=== PATIENT | female | born 1950 | race Two or more races ===

== ENCOUNTER 2024-04-17 07:18 | Day surgery (SDC) | payer OTHER ==
[2024-04-16 17:20] VITALS: BMI 29.7
[2024-04-17] MEDS: IOHEXOL 180 MG/1 ML ML IJ ONE
[2024-04-17] MEDS: DEXAMETHASONE SOD PHOSPHATE 10 MG/1 ML VIAL IM ONE
[2024-04-17] MEDS: LIDOCAINE HCL 1% PRESERVATIVE FREE - 30ML VIAL IJ ONE (13:26)
[2024-04-17 13:55] VITALS: RESP 18; TEMP 97.3
[2024-04-17 14:32] VITALS: BP 146/72; PULSE 68
[2024-04-17] MEDS ORDERED: ACETAMINOPHEN 500 MG TABLET (FP) PO PRN (16:57)
== END 2024-04-17 14:30 | disposition home or self-care (01) ==
LOC: JASU-SURG 07:18
PROVIDERS: ATTEND Pain Medicine Pain Medicine
PROC: 3E0R3BZ Introduction of Anesthetic Agent into Spinal Canal, Percutaneous Approach (ICD-10-PCS; 2024-04-17)
PROC: 3E0R33Z Introduction of Anti-inflammatory into Spinal Canal, Percutaneous Approach (ICD-10-PCS; principal; 2024-04-17 13:24)
DX: M54.16 Radiculopathy, lumbar region (principal); M48.061 Spinal stenosis, lumbar region without neurogenic claudication
CPT/HCPCS: 76000-TC-FY; J1100

== ENCOUNTER 2024-07-11 06:31 | Day surgery (SDC) | payer OTHER ==
[2024-07-09 13:29] VITALS: BMI 29.0
[2024-07-11] MEDS: LIDOCAINE HCL 1% PRESERVATIVE FREE - 30ML VIAL IJ ONE ×2 (11:22)
[2024-07-11] MEDS: IOHEXOL 180 MG/1 ML ML IJ ONE ×2 (11:23)
[2024-07-11] MEDS: BUPIVACAINE HCL/PF 0.5% (5MG/ML) 10 ML VIAL IJ ONE ×2 (11:24)
[2024-07-11] MEDS: TRIAMCINOLONE ACETONIDE 40 MG/ML 10 ML VIAL IJ ONE ×2 (11:24)
[2024-07-11 11:46] VITALS: PULSE 64; TEMP 98.4
[2024-07-11 11:59] VITALS: BP 140/68; RESP 18
== END 2024-07-11 12:10 | disposition home or self-care (01) ==
LOC: JASU-SURG 06:31
PROVIDERS: ATTEND Pain Medicine Pain Medicine
PROC: 3E0U3BZ Introduction of Anesthetic Agent into Joints, Percutaneous Approach (ICD-10-PCS; 2024-07-11)
PROC: 3E0U33Z Introduction of Anti-inflammatory into Joints, Percutaneous Approach (ICD-10-PCS; principal; 2024-07-11 11:00)
DX: M53.3 Sacrococcygeal disorders, not elsewhere classified (principal)
CPT/HCPCS: 76000-TC-FY

== ENCOUNTER 2024-09-28 16:43 | Inpatient (IN) | payer OTHER ==
[2024-09-28 16:58] VITALS: BMI 29.2
[2024-09-28] MEDS ORDERED: ACETAMINOPHEN INJECTION 100 ML ONE (18:00)
[2024-09-28 18:01] LABS: ABSOLUTE IMMATURE GRANULOCYTES 0.03 x10^3/uL (0.0-0.031); BASOPHILS # 0.06 x10^3/uL (0.01-0.08); EOSINOPHIL % 5.6 % (0.7-5.8); EOSINOPHILS # 0.41 x10^3/uL (0.04-0.36); MCHC 32.5 g/dl (32.2-35.5); MEAN CELL VOLUME 94.7 fl (79.4-94.8); MEAN PLT VOLUME 9.0 fl (9.4-12.3); MONOCYTE # 0.75 x10^3/uL (0.24-0.86); MONOCYTE % 10.3 % (4.7-12.5); RDW 12.2 % (12.4-16.6)
[2024-09-28] MEDS: ACETAMINOPHEN 1000 MG/100 ML BAG IVPB ONE (18:04)
[2024-09-28 18:09] LABS: INR 1.09 (0.83-1.09); PROTHROMBIN TIME (PATIENT) 11.9 SEC (9.7-13.0)
[2024-09-28 18:12] LABS: ACTIVATED PTT 28.5 SECONDS (25.2-36.5)
[2024-09-28 18:52] LABS: CO2 30.0 mmol/L (21-32); GLUCOSE,RANDOM 118.0 mg/dL (74-106)
[2024-09-28 18:55] LABS: CREATININE 0.9 mg/dL (0.55-1.3); SGOT/AST 39.0 U/L (15-37); SGPT/ALT 78.0 U/L (13-61)
[2024-09-28 18:56] LABS: TOT PROT 7.2 g/dl (6.4-8.2)
[2024-09-28 18:57] LABS: ALK PHOS 96.0 U/L (45-117)
[2024-09-28] MEDS ORDERED: MAGNESIUM SULFATE IN WATER 2 GM/50 ML IVPB IVPB ONE (19:21)
[2024-09-28] MEDS: MAGNESIUM SULF 50% (8.12 MEQ/2 ML-1 GM VIAL) IVPB ONE (19:43)
[2024-09-28] MEDS ORDERED: KETOROLAC TROMETHAMINE 15 MG/ML VIAL ONE (19:44)
[2024-09-28] MEDS: KETOROLAC TROMETHAMINE 15 MG/ML VIAL IVPUSH ONE (19:45)
[2024-09-28] MEDS ORDERED: LIDOCAINE 4% PATCH TP PRN (21:36)
[2024-09-28] MEDS ORDERED: CELECOXIB 100 MG CAPSULE PO PRN (21:36)
[2024-09-28] MEDS ORDERED: ATORVASTATIN CA 40 MG TABLET (FP) PO SCH (21:45)
[2024-09-28] MEDS ORDERED: amLODIPine BESYLATE 2.5 MG TABLET (FP) PO SCH (22:00)
[2024-09-28] MEDS: ATORVASTATIN CA 20 MG TABLET (FP) PO SCH (22:30)
[2024-09-28] MEDS: amLODIPine BESYLATE 5 MG TABLET (FP) PO SCH (22:31)
[2024-09-28] MEDS: CARVEDILOL 12.5 MG TABLET (FP) PO SCH (22:31)
[2024-09-29] MEDS: PREGABALIN 75 MG CAPSULE PO SCH ×2 (00:17→06:50)
[2024-09-29] MEDS: LIDOCAINE PATCH REMOVAL MC SCH (00:29)
[2024-09-29] MEDS: DOCUSATE SODIUM 100 MG CAPSULE (FP) PO ONE (01:43)
[2024-09-29] MEDS: PREGABALIN 75 MG CAPSULE PO ONE (01:43)
[2024-09-29 07:42] LABS: ABSOLUTE IMMATURE GRANULOCYTES 0.03 x10^3/uL (0.0-0.031); BASOPHILS # 0.04 x10^3/uL (0.01-0.08); EOSINOPHIL % 5.9 % (0.7-5.8); EOSINOPHILS # 0.48 x10^3/uL (0.04-0.36); MCHC 32.4 g/dl (32.2-35.5); MEAN CELL VOLUME 94.6 fl (79.4-94.8); MEAN PLT VOLUME 9.6 fl (9.4-12.3); MONOCYTE # 0.82 x10^3/uL (0.24-0.86); MONOCYTE % 10.0 % (4.7-12.5); RDW 12.2 % (12.4-16.6)
[2024-09-29 08:37] LABS: CO2 30.0 mmol/L (21-32); GLUCOSE,RANDOM 97.0 mg/dL (74-106)
[2024-09-29 08:40] LABS: CREATININE 0.8 mg/dL (0.55-1.3); SGOT/AST 34.0 U/L (15-37); SGPT/ALT 64.0 U/L (13-61)
[2024-09-29 08:42] LABS: TOT PROT 5.7 g/dl (6.4-8.2)
[2024-09-29 08:43] LABS: ALK PHOS 88.0 U/L (45-117)
[2024-09-29] MEDS: SODIUM CHLORIDE 1 GM TABLET PO SCH (09:44)
[2024-09-29] MEDS: PANTOPRAZOLE 20 MG TABLET PO SCH (09:44)
[2024-09-29] MEDS: SPIRONOLACTONE 25 MG TABLET PO SCH (09:44)
[2024-09-29] MEDS: DOCUSATE SODIUM 100 MG CAPSULE (FP) PO SCH (09:44)
[2024-09-29] MEDS ORDERED: PATIENT'S OWN MEDICATION (NON-FORMULARY) (Omeprazole 20 MG Capsule.Dr) PO SCH (10:00)
[2024-09-29] MEDS ORDERED: ENOXAPARIN NA (PORCINE) 40 MG/0.4 ML DISP.SYRIN SQ SCH (10:00)
[2024-09-29] MEDS: CELECOXIB 100 MG CAPSULE PO PRN (18:59)
[2024-09-29 19:24] LABS: HCV DIAGNOSTIC IN-HOUSE W/RFLX NON-REACTIVE (NONREACTIVE)
[2024-09-29 19:26] LABS: HIV INTERPRETATION NEGATIVE (NEGATIVE)
[2024-09-29] MEDS: PATIENT'S OWN MEDICATION (NON-FORMULARY) (Tizanidine Hcl [Tizanidine Hcl] 2 MG Tablet) PO SCH (21:19)
[2024-09-29] MEDS: LACTATED RINGERS SOLUTION 1,000 ML/1,000 ML INFUS.BAG IV SCH (23:16)
[2024-09-30] MEDS ORDERED: ACETAMINOPHEN INJECTION 100 ML ONE (07:23)
[2024-09-30] MEDS ORDERED: PROPOFOL 80 ML ONE (07:33)
[2024-09-30] MEDS ORDERED: SUCCINYLCHOLINE CHLORIDE 200 MG/10 ML SYRINGE ONE (07:34)
[2024-09-30] MEDS ORDERED: MIDAZOLAM HCL 2 MG/2 ML SINGLE DOSE VIAL ONE (07:34)
[2024-09-30] MEDS ORDERED: GLYCOPYRROLATE 0.2 MG/1 ML VIAL ONE (07:35)
[2024-09-30] MEDS ORDERED: LIDOCAINE HCL/PF 2% SDV 5ML VIAL ONE (07:35)
[2024-09-30] MEDS ORDERED: DEXAMETHASONE SOD PHOSPHATE 4 MG/1 ML VIAL ONE (07:35)
[2024-09-30] MEDS ORDERED: ONDANSETRON 4 MG/2 ML VIAL ONE (07:35)
[2024-09-30] MEDS ORDERED: SODIUM CHLORIDE 0.9% P/F 10 ML VIAL IJ ONE (07:41)
[2024-09-30] MEDS ORDERED: MAGNESIUM SULF 50% (8.12 MEQ/2 ML-1 GM VIAL) ONE (07:41)
[2024-09-30] MEDS ORDERED: GENTAMICIN SO4 80 MG/2 ML VIAL ONE (07:41)
[2024-09-30] MEDS ORDERED: VANCOMYCIN 1,000 MG VIAL (RESTRICTED TO ID ONLY) ONE (07:41)
[2024-09-30] MEDS ORDERED: BUPIVACAINE HCL/PF 0.25% (2.5MG/ML) 10 ML VIAL ONE (07:42)
[2024-09-30] MEDS ORDERED: BUPIVACAINE LIPOSOME/PF (EXPAREL) 266 MG/20 ML VIAL ONE (07:42)
[2024-09-30] MEDS ORDERED: THROMBIN (BOVINE) 20,000 UNIT VIAL TP ONE (07:42)
[2024-09-30 08:32] LABS: ABSOLUTE IMMATURE GRANULOCYTES 0.03 x10^3/uL (0.0-0.031); BASOPHILS # 0.04 x10^3/uL (0.01-0.08); EOSINOPHIL % 8.3 % (0.7-5.8); EOSINOPHILS # 0.50 x10^3/uL (0.04-0.36); MCHC 32.3 g/dl (32.2-35.5); MEAN CELL VOLUME 95.4 fl (79.4-94.8); MEAN PLT VOLUME 9.6 fl (9.4-12.3); MONOCYTE # 0.77 x10^3/uL (0.24-0.86); MONOCYTE % 12.7 % (4.7-12.5); RDW 12.0 % (12.4-16.6)
[2024-09-30 08:37] LABS: INR 1.08 (0.83-1.09); PROTHROMBIN TIME (PATIENT) 11.8 SEC (9.7-13.0)
[2024-09-30] MEDS ORDERED: TRANEXAMIC ACID 1000 MG/10 ML VIAL ONE (09:03)
[2024-09-30] MEDS ORDERED: PROPOFOL 40 ML ONE ×2 (09:13→10:22)
[2024-09-30] MEDS: THROMBIN (BOVINE) 5,000 UNIT VIAL TP ONE (09:30)
[2024-09-30] MEDS: THROMBIN (BOVINE) 20,000 UNIT VIAL TP ONE (09:35)
[2024-09-30] MEDS ORDERED: SUGAMMADEX SODIUM 200 MG/2 ML VIAL ONE (09:40)
[2024-09-30] MEDS: GENTAMICIN 80MG PREMIX BAG IVPB ONE (09:45)
[2024-09-30] MEDS: VANCOMYCIN 1,000 MG VIAL (RESTRICTED TO ID ONLY) IVPB ONE (09:45)
[2024-09-30 09:47] LABS: SGPT/ALT 65.0 U/L (13-61)
[2024-09-30 09:48] LABS: ALK PHOS 83.0 U/L (45-117); SGOT/AST 32.0 U/L (15-37); TOT PROT 5.8 g/dl (6.4-8.2)
[2024-09-30] MEDS: BUPIVACAINE HCL/PF 0.25% (2.5MG/ML) 10 ML VIAL IJ ONE (09:50)
[2024-09-30] MEDS: BUPIVACAINE LIPOSOME/PF (EXPAREL) 266 MG/20 ML VIAL NR ONE (09:50)
[2024-09-30 10:01] LABS: CO2 29.0 mmol/L (21-32)
[2024-09-30 10:02] LABS: CREATININE 0.7 mg/dL (0.55-1.3); GLUCOSE,RANDOM 98.0 mg/dL (74-106)
[2024-09-30] MEDS ORDERED: ONDANSETRON 4 MG/2 ML VIAL IVPUSH PRN ×2 (11:46→12:24)
[2024-09-30] MEDS ORDERED: diphenhydrAMINE HCL 25 MG CAPSULE (FP) PO PRN ×2 (11:46→12:24)
[2024-09-30] MEDS: MULTIVITAMINS (DAILY MVI) TABLET (FP) PO SCH (11:53)
[2024-09-30] MEDS ORDERED: DOCUSATE SODIUM 100 MG CAPSULE (FP) PO SCH (14:00)
[2024-09-30] MEDS ORDERED: HEPARIN NA (PORCINE) 5,000 UNITS/ML 1ML VIAL SQ SCH (14:00)
[2024-09-30] MEDS: MAGNESIUM SULFATE IN WATER 2 GM/50 ML IVPB IVPB ONE ×2 (14:00→15:17)
[2024-09-30] MEDS: LACTATED RINGERS SOLUTION 1,000 ML/1,000 ML INFUS.BAG IV SCH ×2 (14:33→15:18)
[2024-09-30] MEDS: LACTATED RINGERS SOLUTION 1,000 ML IV SCH (15:17)
[2024-09-30] MEDS: PATIENT'S OWN MEDICATION (NON-FORMULARY) (Tizanidine Hcl [Tizanidine Hcl] 2 MG) PO SCH (15:25)
[2024-09-30] MEDS: PREGABALIN 75 MG CAPSULE PO SCH (15:25)
[2024-09-30] MEDS: amLODIPine BESYLATE 5 MG TABLET (FP) PO ONE (15:25)
[2024-09-30] MEDS: DOCUSATE SODIUM 100 MG CAPSULE (FP) PO SCH (15:25)
[2024-09-30 15:26] LABS: IRON SERUM 70 ug/dL (50-175)
[2024-09-30] MEDS: CEFAZOLIN 1 GM in DEXTROSE 5%-WATER - 50 ML IVPB SCH (17:12)
[2024-09-30] MEDS ORDERED: ACETAMINOPHEN 1000 MG/100 ML BAG IVPB PRN (17:35)
[2024-09-30] MEDS ORDERED: CEFAZOLIN 1 GM in DEXTROSE 5%-WATER - 50 ML IVPB SCH (18:00)
[2024-09-30] MEDS: CARVEDILOL 12.5 MG TABLET (FP) PO SCH (21:27)
[2024-09-30] MEDS: amLODIPine BESYLATE 5 MG TABLET (FP) PO SCH (21:28)
[2024-09-30] MEDS: ATORVASTATIN CA 20 MG TABLET (FP) PO SCH (21:28)
[2024-09-30] MEDS ORDERED: amLODIPine BESYLATE 5 MG TABLET (FP) PO SCH (22:00)
[2024-10-01 08:45] LABS: ABSOLUTE IMMATURE GRANULOCYTES 0.10 x10^3/uL (0.0-0.031); BASOPHILS # 0.02 x10^3/uL (0.01-0.08); EOSINOPHIL % 0.0 % (0.7-5.8); EOSINOPHILS # 0.00 x10^3/uL (0.04-0.36); MCHC 32.5 g/dl (32.2-35.5); MEAN CELL VOLUME 94.1 fl (79.4-94.8); MEAN PLT VOLUME 10.0 fl (9.4-12.3); MONOCYTE # 1.21 x10^3/uL (0.24-0.86); MONOCYTE % 7.3 % (4.7-12.5); RDW 12.0 % (12.4-16.6)
[2024-10-01 09:08] LABS: INR 1.11 (0.83-1.09); PROTHROMBIN TIME (PATIENT) 12.2 SEC (9.7-13.0)
[2024-10-01] MEDS: FERROUS SO4 325 MG TABLET (FP) PO SCH (09:30)
[2024-10-01] MEDS: MULTIVITAMINS (DAILY MVI) TABLET (FP) PO SCH (09:30)
[2024-10-01] MEDS: PANTOPRAZOLE 20 MG TABLET PO SCH (09:31)
[2024-10-01] MEDS: SPIRONOLACTONE 25 MG TABLET PO SCH (09:31)
[2024-10-01] MEDS: FOLIC ACID 1 MG TABLET (FP) PO SCH (09:31)
[2024-10-01 09:37] LABS: CO2 27.0 mmol/L (21-32)
[2024-10-01 09:38] LABS: GLUCOSE,RANDOM 142.0 mg/dL (74-106)
[2024-10-01 09:40] LABS: SGOT/AST 34.0 U/L (15-37); SGPT/ALT 55.0 U/L (13-61)
[2024-10-01 09:41] LABS: CREATININE 0.9 mg/dL (0.55-1.3)
[2024-10-01 09:42] LABS: TOT PROT 6.3 g/dl (6.4-8.2)
[2024-10-01 09:43] LABS: ALK PHOS 87.0 U/L (45-117)
[2024-10-01] MEDS ORDERED: FERROUS SO4 325 MG TABLET (FP) PO SCH (10:00)
[2024-10-01] MEDS ORDERED: FOLIC ACID 1 MG TABLET (FP) PO SCH (10:00)
[2024-10-01] MEDS: MAGNESIUM SULFATE IN WATER 2 GM/50 ML IVPB IVPB ONE (11:17)
[2024-10-01] MEDS ORDERED: amLODIPine BESYLATE 5 MG TABLET (FP) PO SCH (22:00)
[2024-10-02] MEDS: ACETAMINOPHEN 325 MG TABLET (FP) PO PRN (07:49)
[2024-10-02 08:21] LABS: ABSOLUTE IMMATURE GRANULOCYTES 0.12 x10^3/uL (0.0-0.031); BASOPHILS # 0.04 x10^3/uL (0.01-0.08); EOSINOPHIL % 1.4 % (0.7-5.8); EOSINOPHILS # 0.19 x10^3/uL (0.04-0.36); MCHC 33.3 g/dl (32.2-35.5); MEAN CELL VOLUME 92.5 fl (79.4-94.8); MEAN PLT VOLUME 9.8 fl (9.4-12.3); MONOCYTE # 1.78 x10^3/uL (0.24-0.86); MONOCYTE % 13.2 % (4.7-12.5); RDW 11.9 % (12.4-16.6)
[2024-10-02 08:34] LABS: INR 1.2 (0.83-1.09); PROTHROMBIN TIME (PATIENT) 13.1 SEC (9.7-13.0)
[2024-10-02 09:10] LABS: CO2 29.0 mmol/L (21-32); GLUCOSE,RANDOM 117.0 mg/dL (74-106)
[2024-10-02 09:13] LABS: CREATININE 0.7 mg/dL (0.55-1.3); SGOT/AST 30.0 U/L (15-37); SGPT/ALT 38.0 U/L (13-61)
[2024-10-02 09:15] LABS: TOT PROT 5.3 g/dl (6.4-8.2)
[2024-10-02 09:16] LABS: ALK PHOS 68.0 U/L (45-117)
[2024-10-02] MEDS: POLYETHYLENE GLYCOL (HEALTHYLAX) 3350 17 GM PACKET PO SCH (09:45)
[2024-10-03 09:13] LABS: ABSOLUTE IMMATURE GRANULOCYTES 0.10 x10^3/uL (0.0-0.031); BASOPHILS # 0.04 x10^3/uL (0.01-0.08); EOSINOPHIL % 2.9 % (0.7-5.8); EOSINOPHILS # 0.32 x10^3/uL (0.04-0.36); MCHC 33.1 g/dl (32.2-35.5); MEAN CELL VOLUME 92.5 fl (79.4-94.8); MEAN PLT VOLUME 10.0 fl (9.4-12.3); MONOCYTE # 1.24 x10^3/uL (0.24-0.86); MONOCYTE % 11.2 % (4.7-12.5); RDW 11.7 % (12.4-16.6)
[2024-10-03 10:04] LABS: CO2 27.0 mmol/L (21-32); GLUCOSE,RANDOM 138.0 mg/dL (74-106)
[2024-10-03 10:07] LABS: CREATININE 0.7 mg/dL (0.55-1.3); SGOT/AST 29.0 U/L (15-37); SGPT/ALT 29.0 U/L (13-61)
[2024-10-03 10:09] LABS: TOT PROT 5.4 g/dl (6.4-8.2)
[2024-10-03 10:10] LABS: ALK PHOS 69.0 U/L (45-117)
[2024-10-03] MEDS: MAGNESIUM SULFATE IN WATER 2 GM/50 ML IVPB IVPB ONE (12:01)
[2024-10-03] MEDS: PREGABALIN 25 MG CAPSULE PO SCH (13:14)
[2024-10-03 17:22] LABS: CO2 29.0 mmol/L (21-32)
[2024-10-03 17:23] LABS: GLUCOSE,RANDOM 117.0 mg/dL (74-106)
[2024-10-03 17:26] LABS: CREATININE 0.7 mg/dL (0.55-1.3)
[2024-10-03 17:36] VITALS: RESP 18
[2024-10-04 14:15] VITALS: BP 137/73; PULSE 75; TEMP 98.4
== END 2024-10-04 14:40 | DRG 448 ==
LOC: JER 16:43 → JERBED 17:09 → J8W 23:53
PROVIDERS: ADMIT Internal Medicine; ATTEND Nurse Practitioner Family
PROC: 0SG007J Fusion of Lumbar Vertebral Joint with Autologous Tissue Substitute, Posterior Approach, Anterior Column, Open Approach (ICD-10-PCS; 2024-09-30)
PROC: 0SB20ZZ Excision of Lumbar Vertebral Disc, Open Approach (ICD-10-PCS; 2024-09-30)
PROC: 01NB0ZZ Release Lumbar Nerve, Open Approach (ICD-10-PCS; 2024-09-30)
PROC: 4A11X4G Monitoring of Peripheral Nervous Electrical Activity, Intraoperative, External Approach (ICD-10-PCS; 2024-09-30)
PROC: 0SG00AJ Fusion of Lumbar Vertebral Joint with Interbody Fusion Device, Posterior Approach, Anterior Column, Open Approach (ICD-10-PCS; principal; 2024-09-30 08:00)
DX: M48.062 Spinal stenosis, lumbar region with neurogenic claudication (principal); M54.16 Radiculopathy, lumbar region; M43.16 Spondylolisthesis, lumbar region; I10 Essential (primary) hypertension; E78.5 Hyperlipidemia, unspecified; E83.42 Hypomagnesemia; R79.89 Other specified abnormal findings of blood chemistry; R29.6 Repeated falls
CPT/HCPCS: 36415; 71045-TC-FY; 72131-TC; 76000-TC-FY; 76705-TC; 80048; 80053; 82728; 83036; 83540; 83550; 83735; 84100; 85025; 85610; 85730; 86803; 86850; 86900; 86901; 87389; 87637-QW; 93005; 93010; 94010; 94760; 97116-GP; 97161-GP; 99285-25; C1713; C1889; J0666